=== PATIENT | male | born 1985 | race Caucasian/White ===

== ENCOUNTER 2020-05-04 19:15 | Emergency (ER) | payer BC ==
[2020-05-04 19:50] LABS: CHLORIDE,CL 99 mEq/L (98-106); SODIUM,NA 137 mEq/L (136-145)
[2020-05-04] MEDS: Metoprolol Tartrate 25 MG Tab PO ONE (19:57)
[2020-05-04 20:00] LABS: PTT,PARTIAL THROMBOPLSTIN TIME 23.8 SEC (23.2-32.3)
--- NOTE | 2020-05-04 20:31 | EDM.PDOC ---
ED HPI GENERAL MEDICAL PROBLEM - General Chief Complaint: General Stated Complaint: L Jaw, Neck, Arm Pain, Tingling Time Seen by Provider: 05/04/20 19:25 Source of Information: Reports: Patient History Limitations: Reports: No Limitations - History of Present Illness INITIAL COMMENTS - FREE TEXT/NARRATIVE: Serjio is a 35 yo male who presents to the ED with concerns of left sided facial tingling that extends to left anterior chest and left forearm. States he has symptoms this morning and never seemed to ever go away. States it does intermittently come and go thru out the day. Denies any worsening of symptoms with exertion. Has history of heart burn and thought maybe that had something to do with it and took some Pepcid this morning. States he thought it maybe got a little better. Admits to 1/2 ppd smoker. Has history of hypertension but hasn't ever been treated for it. Denies any COVID symptoms. Admits he thought he had a sinus infection last week and was COVID tested. Denies any routine home medications. Denies any significant past medical history besides high blood pressure and fast heart rate. Does drink a couple cups of coffee daily. Duration: Improving - Related Data Allergies Allergy/AdvReac Type Severity Reaction Status Date / Time Penicillins Allergy Hives Verified 05/04/20 19:28 Home Meds: Home Meds Metoprolol Succinate 50 mg PO DAILY #30 tab.er.24h 05/04/20 [Rx] Past Medical History - Past Health History Medical/Surgical History: Denies Medical/Surgical History Social & Family History - Family History Family Medical History: No Pertinent Family History - Tobacco Use Tobacco Use Status *Q: Current Every Day Tobacco User Years of Tobacco use: 20 Packs/Tins Daily: 0.5 - Caffeine Use Caffeine Use: Reports: Coffee - Recreational Drug Use Recreational Drug Use: No ED ROS GENERAL - Review of Systems Review Of Systems: See Below Constitutional: Denies: Fever, Chills, Weakness, Fatigue, Decreased Appetite HEENT: Reports: No Symptoms Respiratory: Denies: Shortness of Breath, Wheezing, Pleuritic Chest Pain, Cough Cardiovascular: Reports: Blood Pressure Problem. Denies: Chest Pain, Dyspnea on Exertion, Edema, Palpitations, Syncope GI/Abdominal: Reports: Other (heartburn) : Reports: No Symptoms Musculoskeletal: Reports: No Symptoms Skin: Reports: No Symptoms Neurological: Reports: Tingling. Denies: Confusion, Dizziness, Headache, Trouble Speaking, Difficulty Walking, Weakness Psychiatric: Reports: Anxiety ED EXAM, GENERAL - Physical Exam Exam: See Below Exam Limited By: No Limitations General Appearance: Alert, WD/WN, No Apparent Distress Eye Exam: Bilateral Eye: Normal Inspection Nose: Normal Inspection, No Blood Throat/Mouth: Normal Inspection, Normal Voice, No Airway Compromise Head: Atraumatic, Normocephalic Neck: Normal Inspection, Supple. No: Lymphadenopathy (L), Lymphadenopathy (R) Respiratory/Chest: No Respiratory Distress, Lungs Clear, Normal Breath Sounds, No Accessory Muscle Use Cardiovascular: Normal Peripheral Pulses, Regular Rate, Rhythm, No Edema, No Murmur Peripheral Pulses: 2+: Dorsalis Pedis (L), Dorsalis Pedis (R) GI/Abdominal: Normal Bowel Sounds, Soft, No Organomegaly, No Distention, No Mass, Other (obese) Extremities: Normal Inspection, No Pedal Edema Neurological: Alert, Oriented, Normal Cognition, No Motor/Sensory Deficits Psychiatric: Normal Affect, Normal Mood Skin Exam: Warm, Dry, Intact, Normal Color, No Rash #1 Interpretation EKG Date: 05/04/20 Rhythm: Other (Sinus Tachycardia) Rate (Beats/Min): 106 QRS: Normal ST-T: Normal Comparison: NA - No Prior EKG Course - Vital Signs Last Recorded V/S: Last Vital Signs Temp 98.1 F 05/04/20 19:21 Pulse 84 05/04/20 19:57 Resp 18 05/04/20 19:21 BP 153/92 H 05/04/20 19:57 Pulse Ox 95 05/04/20 19:21 - Orders/Labs/Meds Orders: Active Orders 24 hr Category Date Time Status Chest 2V [CR] Stat Exams 05/04/20 19:42 Ordered EKG 12 Lead [EK] Stat Ther 05/04/20 19:16 Ordered Labs: Laboratory Tests 05/04/20 05/04/20 05/04/20 Range/Units 19:30 19:30 19:30 WBC 14.1 H (5.0-10.0) 10^3/uL RBC 5.50 (4.50-6.00) 10^6/uL Hgb 15.7 (14.0-18.0) g/dL Hct 46.6 (40.0-54.0) % MCV 84.7 (82.0-94.0) fL MCH 28.5 (27.0-32.0) pg MCHC 33.7 (33.0-38.0) g/dL RDW Coeff of [place] 13.2 (11.0-15.0) % Plt Count 289 (150-400) 10^3/uL Neut % (Auto) 65.2 (35-85) % Lymph % (Auto) 26.5 (10-55) % [place] % (Auto) 6.5 (0-16) % Eos % (Auto) 1.6 (0-5) % Baso % (Auto) 0.2 (0-3) % Neut # (Auto) 9.19 H (1.80-7.00) 10^3/uL Lymph # (Auto) 3.73 (1.00-4.80) 10^3/uL [place] # (Auto) 0.92 H (0.00-0.80) 10^3/uL Eos # (Auto) 0.23 (0.00-0.45) 10^3/uL Baso # (Auto) 0.03 10^3/uL PT 10.1 (9.7-12.3) SEC INR 1.00 (0.92-1.18) APTT 23.8 (23.2-32.3) SEC Sodium 137 (136-145) mEq/L Potassium 3.7 (3.5-5.0) mEq/L Chloride 99 (98-106) mEq/L Carbon Dioxide 27 (21-32) mmol/L BUN 11 (7-18) mg/dL Creatinine 1.0 (0.7-1.3) mg/dL Est Cr Clr Drug Dosing 104.43 mL/min Estimated GFR (MDRD) > 60 (>=60) mL/min Glucose 111 H (75-99) mg/dL Calcium 9.8 (8.4-10.1) mg/dL Magnesium 2.0 (1.8-2.4) mg/dL Total Bilirubin 0.4 (0.0-1.0) mg/dL AST 19 (15-37) U/L ALT 38 (12-78) U/L Alkaline Phosphatase 64 (46-116) U/L Lactate Dehydrogenase 168 (100-190) U/L Creatine Kinase 116 (35-232) U/L Troponin I < 0.017 (0.00-0.06) ng/mL Total Protein 8.5 H (6.4-8.2) g/dL Albumin 4.2 (3.4-5.0) g/dL Meds: Medications Discontinued Medications Generic Name Dose Route Start Last Admin Trade Name Venuq PRN Reason Stop Dose Admin Metoprolol Tartrate 25 mg 05/04/20 19:43 05/04/20 19:57 Lopressor PO 05/04/20 19:44 25 mg ONETIME ONE Administration Departure - Departure Time of Disposition: 20:32 Disposition: Home, Self-Care 01 Clinical Impression: Hypertension, uncontrolled - Discharge Information *PRESCRIPTION DRUG MONITORING PROGRAM REVIEWED*: Not Applicable *COPY OF PRESCRIPTION DRUG MONITORING REPORT IN PATIENT VAIBHAV: Not Applicable Prescriptions: Metoprolol Succinate 50 mg PO DAILY #30 tab.er.24h Instructions: Hypertension, Adult, [id number], Managing Your Hypertension Referrals: Tana Masterson PA-C [Primary Care Provider] - Additional Instructions: 1) Cardiac laboratory work up today was negative. 2) Uncontrolled blood pressure treated with metoprolol. Prescription was sent to [facility] in for Metoprolol Succinate 50mg daily 3) Encourage lifestyle changes as discussed to help with high blood pressure. 4) Recheck in clinic next week with primary provider for blood pressure check and repeat blood work. 5) May try Prilosec 20mg daily for 2 weeks for heart burn 6) If symptoms return, worsen or any concerns at all, recommend returning to emergency department. Sepsis Event Note (ED) - Evaluation Sepsis Screening Result: No Definite Risk - Focused Exam Vital Signs: Vital Signs Temp Pulse Pulse Resp BP BP Pulse Ox 05/04/20 19:57 84 153/92 H 05/04/20 19:21 98.1 F 109 H 18 157/103 H 95 - Problem List & Annotations (1) Hypertension, uncontrolled SNOMED Code(s): 72866933, 63276230 Code(s): I10 - ESSENTIAL (PRIMARY) HYPERTENSION Status: Acute Current Visit: Yes - My Orders Last 24 Hours: My Active Orders 05/04/20 19:16 EKG 12 Lead [EK] Stat 05/04/20 19:42 Chest 2V [CR] Stat - Assessment/Plan Last 24 Hours: My Active Orders 05/04/20 19:16 EKG 12 Lead [EK] Stat 05/04/20 19:42 Chest 2V [CR] Stat Plan: Serjio is doing well in the ED. Patient was given 25mg of Metoprolol Tartrate which did slow heart rate down and improved blood pressure. Discussed into detail ongoing uncontrolled hypertension. Will initiate treatment and prescription sent to [facility] in [place] for Metoprolol Succinate 50mg daily. Laboratory work was unremarkable for cardiac work up. WBC was slightly elevated. Patient will follow up with primary in 1 week for recheck CBC and blood pressure. Discussed medication may need to be adjusted. Serjio will also start Prilosec 20mg daily for 2 weeks to see if any relief with heart burn.
== END 2020-05-04 20:45 | disposition home or self-care (01) ==
LOC: CC.ED 19:15
DX: I10 Essential (primary) hypertension (principal); F17.210 Nicotine dependence, cigarettes, uncomplicated; E66.9 Obesity, unspecified; Z68.39 Body mass index [BMI] 39.0-39.9, adult; Z88.0 Allergy status to penicillin; Z79.899 Other long term (current) drug therapy
CPT/HCPCS: 36415; 80053; 82550; 83615; 83735; 84484; 85025; 85610; 85730; 99284; A9270-GY